=== PATIENT | male | born 2000 | race Caucasian/White ===

== ENCOUNTER 2023-03-17 22:45 | Emergency (ER) | payer SELFPAY ==
[2023-03-17 23:06] VITALS: BP 146/80; PULSE 79; RESP 18; TEMP 36.4; O2SAT 96; BMI 20.8
[2023-03-17 23:35] LABS: COVID-19 Test Negative (Negative); IDNOW Serial# 152EDE1D
[2023-03-18 01:57] LABS: IDNOW Serial# 08D9AD1C; Strep A Nucleic Acid Negative (Negative)
[2023-03-18 02:04] LABS: IDNOW Serial# 152EDE1D; Influenza A Negative (Negative); Influenza B2 Negative (Negative)
[2023-03-18] MEDS: cefuroxime axetiL 500 MG TABLET PO (04:03)
[2023-03-18 04:04] VITALS: BP 123/71; PULSE 75; RESP 16; TEMP 37.4; O2SAT 99
--- NOTE | 2023-03-18 04:04 | ED.GENADULT ---
HPI - General Adult General Chief complaint: Fever Stated complaint: sore throat,fever,h/a Time Seen by Provider: 03/18/23 03:32 Source: patient Mode of arrival: ambulatory Limitations: no limitations History of Present Illness HPI narrative: Patient complaining of sore throat since yesterday with body aches low-grade fever difficulty swollen because of pain and headache no other family member sick Related Data Previous Rx's Medication Instructions Recorded benzonatate 200 mg capsule 200 mg PO TID PRN cough #20 caps 03/18/23 cefuroxime axetil 500 mg tablet 500 mg PO BID 7 days #14 tabs 03/18/23 Allergies Allergy/AdvReac Type Severity Reaction Status Date / Time No Known Allergies Allergy Verified 03/17/23 23:09 Review of Systems Review of Systems: Yes all other systems are reviewed and are negative [facility] Past Medical History Attestation statement: The following information was validated with the patient. Social History Social History Advance Directives: No Advance Directives Information Provided: Yes Physical Exam ED Vital Signs: Vital Signs - 24 hr 03/17/23 23:06 03/18/23 04:04 Temperature 97.5 F 99.4 F Pulse Rate 79 75 Respiratory Rate 18 16 Blood Pressure 146/80 H 123/71 Pulse Oximetry 96 99 Oxygen Delivery Method Room Air Room Air BMI result Body Mass Index 20.8 Appearance: Alert. Oriented X3. No acute distress. ENT: Pharynx erythematous enlarged tonsils no exudate, Oral Mucosa moist Neck: Normal inspection. Neck supple. CVS: Normal heart rate and rhythm. Pulses normal. Respiratory: No respiratory distress. Equal air entry bilateral, no wheezing/rales/rhonchi Abdomen: Soft and nontender. Skin: Skin warm and dry. Normal skin color. Normal skin turgor. Medications Administered Discontinued Medications Generic Name Dose Route Start Last Admin Trade Name Freq PRN Reason Stop Dose Admin Cefuroxime Axetil 500 mg 03/18/23 03:53 03/18/23 04:03 Cefuroxime Axetil 500 Mg Tablet PO 03/18/23 03:54 500 mg ONCE ONE Administration Medical Decision Making Medical Decision Making MDM Narrative: Patient has acute pharyngitis will give Ceftin no tonsillar abscess Lab Data MDM Lab Attestation statement: I reviewed the patient's lab results. Labs: Lab Results 03/17/23 03/18/23 Range/Units 23:15 01:43 COVID-19 ([facility]) Negative (Negative) COVID-19 Clin Com See Note Influenza Type A (ALEJANDRO) Negative (Negative) Influenza Type B (ALEJANDRO) Negative (Negative) Influenza A & B Note See Note S. pyogenes GrpA ALEJANDRO Negative (Negative) Discharge Plan Discharge Clinical Impression: Acute pharyngitis Patient Disposition: Home, Self-Care Instructions: Pharyngitis (ED) Additional Instructions: Drink plenty of fluids Antibiotic as prescribed Tylenol/Motrin for fever/ pain Prescriptions: New benzonatate 200 mg capsule 200 mg PO TID PRN (Reason: cough) Qty: 20 0RF cefuroxime axetil 500 mg tablet 500 mg PO BID 7 Days Qty: 14 0RF Interventions: ED Discharge Assessment Last Done: 03/18/23 04:22 Discharge Date/Time: 03/18/23 04:23
== END 2023-03-18 04:23 | disposition home or self-care (01) ==
PROVIDERS: Emergency Provider Internal Medicine
DX: J02.9 Acute pharyngitis, unspecified (principal); Z11.52 Encounter for screening for COVID-19
CPT/HCPCS: 87502; 87635; 87651; 99283